=== PATIENT | male | born 1965 | race Caucasian/White ===

== ENCOUNTER → 2017-08-21 | Outpatient (CLI) | payer OTHER ==
--- NOTE | ~2017-08-21 | 2DMMODE ---
[facility] [employer] [place] [place] [address] 2 D/M-MODE ECHOCARDIOGRAM Name: POWER LAST Room #: REG [facility]#: [id number] Admission: 08/21/17 Attend Phys: Armand Bañuelos Discharge: Date of : 69 Date of Service: 08/21/17 0956 Report #: [id number] THIS REPORT FOR: //name// APPROVED REPORT Study performed: 08/21/2017 08:40:17 EXAM: Comprehensive 2D, Doppler, and color-flow Echocardiogram Patient Location: Out-Patient Status: routine BSA: 1.91 HR: 61 bpm BP: 131/88 mmHg Rhythm: NSR Other Information Study Quality: Good Indications TIA Echo Enhancing Agent Indication: Rule out Shunt Agent(s) / Amount(s) Used: Agitated Saline 6 cc 2D Dimensions RVDd: 37.11 mm LVEF(%): 66.01 (>50%) IVSd: 9.27 (7-11mm) LVOT Diam: 21.40 (18-24mm) LVDd: 45.90 mm PWd: 8.99 (7-11mm) Ascending Ao: 29.18 (22-36mm) LVDs: 29.25 (25-40mm) Aortic Root: 34.57 mm Sean's LVEF: 66.01 % Volumes Left Atrial Volume (Systole) Single Plane 4CH: 55.52 mL Single Plane 2CH: 32.65 mL LA ESV Index: 23.00 mL/m2 Aortic Valve AoV Peak Mohsen.: 1.60 m/s AO Peak Gr.: 10.28 mmHg LVOT Max P.57 mmHg LVOT Max V: 0.95 m/s MELI Vmax: 2.12 cm2 [facility] [place] [address] [address] 2 D/M-MODE ECHOCARDIOGRAM Name: POWER LAST Room #: [facility]#: [id number] Admission: 08/21/17 Attend Phys: Armand Bañuelos Discharge: Date of : 69 Date of Service: 08/21/17 0956 Report #: [id number] Mitral Valve E/A Ratio: 1.1 MV Decel. Time: 218.64 ms MV E Max Mohsen.: 0.74 m/s MV A Mohsen.: 0.66 m/s MV PHT: 63.41 ms IVRT: 73.82 ms Pulmonary Valve PV Peak Mohsen.: 0.85 m/s PV Peak Gr.: 2.91 mmHg Pulmonary Vein P Vein S: 0.50 m/s P Vein A: 0.29 m/s P Vein D: 0.44 m/s P Vein A Dur.: 120.0 msec P Vein S/D Ratio: 1.14 Tricuspid Valve TR Peak Mohsen.: 2.30 m/s RAP Estimate: 5.00 mmHg TR Peak Gr.: 21.13 mmHg PA Pressure: 26.00 mmHg Left Ventricle The left ventricle is normal size. There is normal LV segmental wall motion. There is normal left ventricular wall thickness. Left ventricular systolic function is normal. LVEF is 55%. The left ventricular diastolic function is normal. Right Ventricle The right ventricle is normal size. The right ventricular systolic function is normal. Atria The left atrium size is normal. No shunting by contrast bubble injection The right atrium size is normal. Aortic Valve The Aortic valve is mildly sclerotic, trileaflet. No aortic regurgitation is present. There is no aortic valvular stenosis. Mitral Valve The mitral valve is normal in structure. Mild mitral regurgitation. Tricuspid Valve [address] [address] 2 D/M-MODE ECHOCARDIOGRAM Name: POWER LAST Room #: REG [facility]#: [id number] Admission: 08/21/17 Attend Phys: Armand Bañuelos Discharge: Date of : 69 Date of Service: 08/21/17 0956 Report #: [id number] The tricuspid valve is normal in structure. Mild tricuspid regurgitation. Pulmonic Valve The pulmonary valve is normal in structure. Trace pulmonic regurgitation. Great Vessels The aortic root is normal in size. The ascending aorta is normal in size. IVC is normal in size and collapses >50% with inspiration. Pericardium There is no pericardial effusion. <Conclusion> 1. Normal echocardiogram with Doppler. EF 55% 2. No shunting by contrast bubble injection 3. No pericardial effusion <ELECTRONICALLY SIGNED> By: Remigio Krishnamurthy MD, FACC 08/21/17955 5 5 Remigio Krishnamurthy MD, FACC /INF
== END ==
LOC: MRI 07:03
DX: G45.9 Transient cerebral ischemic attack, unspecified (principal); R41.3 Other amnesia